=== PATIENT | female | born 1955 | race African-American/Black ===

== ENCOUNTER 2024-04-16 13:49 | Emergency (ER) | payer MEDICARE ==
[~2024-04-16] VITALS: Ht 167.6 cm; Wt 68.0 kg
[2024-04-16 13:52] VITALS: BP 122/52; PULSE 78; RESP 18; TEMP 98; O2SAT 98
[2024-04-16 15:05] LABS: BASOPHILS % 0.7 % (0.0-2.0); HEMATOCRIT. 39.4 % (36.0-48.0); HEMOGLOBIN. 12.8 g/dL (12.0-16.0); LYMPHOCYTES % 22.3 % (20.0-50.0); MEAN CORPUSCULAR HEMOGLOBIN 28.7 pg (28.0-32.0); MEAN CORPUSCULAR HGB CONC 32.6 g/dL (31.0-37.0); MEAN PLATELET VOLUME 8.8 fl (7.4-10.4); MONOCYTES % 7.8 % (2.0-8.0); NEUTROPHILS % 68.2 % (40.0-76.0); PLATELET 332 x1000/uL (130-400); RED BLOOD CELL COUNT 4.48 mill/uL (4.2-5.4); RED CELL DISTRIBUTION WIDTH 14.2 % (11.6-14.6); WHITE BLOOD COUNT 7.8 x1000/uL (4.5-11.0)
[2024-04-16 15:10] LABS: POTASSIUM 3.9 mEq/L (3.5-5.1)
[2024-04-16 15:11] LABS: CALCIUM 9.3 mg/dL (8.7-10.4)
[2024-04-16 15:16] LABS: CREATININE 1.2 mg/dL (0.6-1.0)
[2024-04-16 16:13] LABS: TROPONIN I HIGH SENSITIVITY 5 ng/L (3.0-34)
[2024-04-16 16:14] LABS: ALANINE AMINOTRANSFERASE < 7 IU/L (10-49); ALBUMIN 4.3 g/dL (3.2-4.8); ASPARTATE AMINOTRANSFERASE 15 IU/L (<34); BILIRUBIN TOTAL 0.2 mg/dL (0.1-1.0); PROTEIN TOTAL 7.5 g/dL (6.0-8.3)
[2024-04-16 16:15] LABS: BILIRUBIN DIRECT < 0.1 mg/dL (<=3.0)
[2024-04-16 18:49] LABS: TROPONIN I HIGH SENSITIVITY 4 ng/L (3.0-34)
[2024-04-16] MEDS ORDERED: MAG-55 MT (18:53)
== END 2024-04-16 16:38 | disposition home or self-care (01) ==
LOC: ER 14:25
DX: I10 Essential (primary) hypertension (principal); R10.84 Generalized abdominal pain
CPT/HCPCS: 36415; 71045; 74176; 80048; 80076; 84484; 85025; 93005; 99285